=== PATIENT | male | born 1970 | race American Indian/Alaskan Native ===

== ENCOUNTER 2019-06-07 14:30 | Emergency (ER) | payer SELFPAY ==
[2019-06-07 15:04] VITALS: BP 138/95
--- NOTE | 2019-06-07 15:36 | Emergency Department Report ---
ED ENT HPI - General Chief complaint: Allergic Reaction Stated complaint: THROAT SWELLING/PAIN Time Seen by Provider: 06/07/19 15:28 Source: patient Mode of arrival: Ambulatory Limitations: No Limitations - History of Present Illness Initial comments: This is a 49-year-old male nontoxic well in appearance with no signs of distress presents to the ED with complaint of sore throat. Patient denies any drooling or hoarseness. Patient denies any other symptoms. Denies any fever, chills, headache, nausea, vomiting, chest pain or SOB. Denies any other complaints. Patient stated allergies to morphine. MD complaint: sore throat -: days(s) Location: throat Severity: mild Severity scale (0 -10): 8 Quality: aching Consistency: constant Improves with: none Worsens with: swallowing Associated Symptoms: pain with swallowing, sore throat. denies: fever, cough, gum swelling, toothache, tinnitus, hearing loss, discharge from ear, rhinorrhea - Related Data Previous Rx's Medication Instructions Recorded Last Taken Type Amoxicillin [Amoxicillin TAB] 875 mg PO BID #20 tablet 06/07/19 Unknown Rx Ibuprofen [Motrin] 600 mg PO Q8H PRN #20 tablet 06/07/19 Unknown Rx Allergies Allergy/AdvReac Type Severity Reaction Status Date / Time No Known Allergies Allergy Verified 06/07/19 14:33 ED Dental HPI - General Chief complaint: Allergic Reaction Stated complaint: THROAT SWELLING/PAIN Time Seen by Provider: 06/07/19 15:28 Source: patient Mode of arrival: Ambulatory Limitations: No Limitations - Related Data Previous Rx's Medication Instructions Recorded Last Taken Type Amoxicillin [Amoxicillin TAB] 875 mg PO BID #20 tablet 06/07/19 Unknown Rx Ibuprofen [Motrin] 600 mg PO Q8H PRN #20 tablet 06/07/19 Unknown Rx Allergies Allergy/AdvReac Type Severity Reaction Status Date / Time No Known Allergies Allergy Verified 06/07/19 14:33 ED Review of Systems ROS: Stated complaint: THROAT SWELLING/PAIN Other details as noted in HPI Constitutional: denies: chills, fever Eyes: denies: eye pain, eye discharge, vision change ENT: throat pain. denies: ear pain Respiratory: denies: cough, shortness of breath, wheezing Cardiovascular: denies: chest pain, palpitations Endocrine: no symptoms reported Gastrointestinal: denies: abdominal pain, nausea, diarrhea Genitourinary: denies: urgency, dysuria Musculoskeletal: denies: back pain, joint swelling, arthralgia Skin: denies: rash, lesions Neurological: denies: headache, weakness, paresthesias Psychiatric: denies: anxiety, depression Hematological/Lymphatic: denies: easy bleeding, easy bruising ED Past Medical Hx - Past Medical History Previous Medical History?: No - Surgical History Past Surgical History?: No - Social History Smoking Status: Current Every Day Smoker Substance Use Type: Alcohol, Marijuana - Medications Home Medications: Home Medications Medication Instructions Recorded Confirmed Last Taken Type Amoxicillin [Amoxicillin TAB] 875 mg PO BID #20 tablet 06/07/19 Unknown Rx Ibuprofen [Motrin] 600 mg PO Q8H PRN #20 tablet 06/07/19 Unknown Rx ED Physical Exam - General Limitations: No Limitations General appearance: alert, in no apparent distress - Head Head exam: Present: atraumatic, normocephalic - Expanded ENT Exam Expanded Ear exam: Present: normal external inspection Mouth exam: Present: normal external inspection. Absent: drooling, trismus, muffled voice Teeth exam: Present: normal inspection Throat exam: Positive: tonsillar erythema, other (uvula midline). Negative: tonsillomegaly, tonsillar exudate, R peritonsillar mass, L peritonsillar mass - Neck Neck exam: Present: normal inspection, full ROM. Absent: tenderness, meningismus, lymphadenopathy - Extremities Exam Extremities exam: Present: normal inspection, full ROM - Back Exam Back exam: Present: normal inspection, full ROM. Absent: tenderness, CVA tenderness (R), CVA tenderness (L), muscle spasm, paraspinal tenderness, vertebral tenderness, rash noted - Neurological Exam Neurological exam: Present: alert, oriented X3, normal gait - Psychiatric Psychiatric exam: Present: normal affect, normal mood - Skin Skin exam: Present: warm, dry, intact, normal color. Absent: rash - Other Other exam information: no angioedema. ED Course Vital Signs 06/07/19 15:01 Temperature 98.1 F Pulse Rate 67 Respiratory 17 Rate Blood Pressure 138/95 O2 Sat by Pulse 98 Oximetry - Reevaluation(s) Reevaluation #1: 06/07/19 15:34 Patient is speaking in full sentences with no signs of distress noted. ED Medical Decision Making - Medical Decision Making Patient was instructed to Follow-up with a primary care doctor in 3-5 days or if symptoms worsen and continue return to emergency room as soon as possible. At time of discharge, the patient does not seem toxic or ill in appearance. No acute signs of distress noted. Patient agrees to discharge treatment plan of care. No further questions noted by the patient. Critical care attestation.: If time is entered above; I have spent that time in minutes in the direct care of this critically ill patient, excluding procedure time. ED Disposition Clinical Impression: Pharyngitis Qualifiers: Pharyngitis/tonsillitis etiology: unspecified etiology Qualified Code(s): J02.9 - Acute pharyngitis, unspecified Disposition: - TO HOME OR SELFCARE Is pt being admited?: No Does the pt Need Aspirin: No Condition: Stable Instructions: Pharyngitis (ED) Additional Instructions: Follow-up with a primary care doctor in 3-5 days or if symptoms worsen and continue return to emergency room as soon as possible. Prescriptions: Amoxicillin [Amoxicillin TAB] 875 mg PO BID #20 tablet Ibuprofen [Motrin] 600 mg PO Q8H PRN #20 tablet PRN Reason: Pain Referrals: PRIMARY CARE, [Referring] - 3-5 Days SIRISHA CHANDRA MD [Staff Physician] - 3-5 Days [facility] [Outside] - 3-5 Days [facility] [Outside] - 3-5 Days
== END 2019-06-07 16:10 | disposition home or self-care (01) ==
LOC: ED 14:30
DX: J02.9 Acute pharyngitis, unspecified (principal); F17.200 Nicotine dependence, unspecified, uncomplicated; F12.10 Cannabis abuse, uncomplicated; Z79.899 Other long term (current) drug therapy

== ENCOUNTER 2019-06-19 15:12 | Emergency (ER) | payer OTHER ==
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
[2019-06-19 23:36] VITALS: BP 169/102
== END 2019-06-19 23:36 | disposition home or self-care (01) ==
LOC: ED 15:12
DX: S16.1XXA Strain of muscle, fascia and tendon at neck level, initial encounter (principal); S86.911A Strain of unspecified muscle(s) and tendon(s) at lower leg level, right leg, initial encounter; S46.912A Strain of unspecified muscle, fascia and tendon at shoulder and upper arm level, left arm, initial encounter; F17.200 Nicotine dependence, unspecified, uncomplicated; F10.10 Alcohol abuse, uncomplicated; F12.10 Cannabis abuse, uncomplicated; Z98.890 Other specified postprocedural states; Z79.899 Other long term (current) drug therapy; V49.49XA Driver injured in collision with other motor vehicles in traffic accident, initial encounter; Y93.89 Activity, other specified; Y92.410 Unspecified street and highway as the place of occurrence of the external cause; Y99.8 Other external cause status
CPT/HCPCS: 72040

== ENCOUNTER 2019-08-24 11:05 | Emergency (ER) | payer SELFPAY ==
[2019-08-24 11:14] VITALS: BP 156/73
--- NOTE | 2019-08-24 11:18 | Event Note ---
ED Screening Note Date of service: 08/24/19 Time: 11:14 ED Screening Note: This is a 49 y.o. M. that presents with right hip pain. Woke up with symptoms this morning. 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 Denies radiating pain, swelling, or bruising. Pain worse with with sitting and movement. This initial assessment/diagnostic orders/clinical plan/treatment(s) is/are subject to change based on patients health status, clinical progression and re- assessment by fellow clinical providers in the ED. Further treatment and workup at subsequent clinical providers discretion. Patient/guardian urged not to elope from the ED as their condition may be serious if not clinically assessed and managed. Initial orders include: ACC for further evaluation.
--- NOTE | 2019-08-24 12:35 | Emergency Department Report ---
HPI - General Chief Complaint: Pain General Time Seen by Provider: 08/24/19 11:14 - HPI HPI: This is a 49-year-old male who presents to ED complaining of right lateral keep/type pain that began this morning when he woke up after coming in from work. 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 Patient states he does to some heavy lifting and bending but had no trauma injuries or falls. Patient states pain is localized to the right lateral hip region. Patient denies any radiation elsewhere. He denies fever assess chills/nausea vomiting/extremity swelling redness ED Past Medical Hx - Past Medical History Previous Medical History?: No - Surgical History Past Surgical History?: No Additional Surgical History: NECK SURGERY IN 1992 - Social History Smoking Status: Heavy Tobacco Smoker Substance Use Type: Alcohol, Marijuana - Medications Home Medications: Home Medications Medication Instructions Recorded Confirmed Last Taken Type Amoxicillin [Amoxicillin TAB] 875 mg PO BID #20 tablet 06/07/19 Unknown Rx Ibuprofen [Motrin] 600 mg PO Q8H PRN #20 tablet 06/07/19 Unknown Rx Methocarbamol [Robaxin] 500 mg PO BID PRN #15 tablet 06/19/19 Unknown Rx Cyclobenzaprine [Flexeril] 10 mg PO QHS PRN #30 tablet 08/24/19 Unknown Rx Ibuprofen [Motrin 800 MG tab] 800 mg PO Q8HR PRN #20 tablet 08/24/19 Unknown Rx ED Review of Systems ROS: Stated complaint: RT THIGH PAIN Other details as noted in HPI Comment: All other systems reviewed and negative Physical Exam - Physical Exam Vital Signs: Vital Signs 08/24/19 08/24/19 11:11 11:15 Temperature 99.1 F 99 F Pulse Rate 85 79 Respiratory 18 16 Rate Blood Pressure 156/73 156/73 O2 Sat by Pulse 95 97 Oximetry Physical Exam: GENERAL: Alert and oriented x3, no apparent distress, Normal Gait, atraumatic. HEAD: Head is normocephalic and a-traumatic. NECK: Supple. Non edematous, No lymphadenopathy or thyromegaly. No C-spine tenderness, full range of motion LUNGS: Symetrical with respiration, No wheezing, no rales or crackles, CTAB. HEART: S1, S2 present, regular rate and rhythm without murmur, no rubs, no gallops. Non tender to palpation BACK: Full range of motion, no spinal tenderness, EXTREMITIES/MUSCULOSKELETAL: No cyanosis, clubbing, rash, lesions or edema. Full ROM bilaterally. UE/LE Pulses 2+ bilaterally. LE and UE 5+ strength bilaterally, NEUROLOGIC: The patient is cooperative with no focal neurologic deficits. Tenderness to palpation of the right lateral thigh muscle. No swelling, some dystrophy of the muscle noted. SKIN: Warm and dry, No lesions, No ulceration or induration present. ED Course Vital Signs 08/24/19 08/24/19 11:11 11:15 Temperature 99.1 F 99 F Pulse Rate 85 79 Respiratory 18 16 Rate Blood Pressure 156/73 156/73 O2 Sat by Pulse 95 97 Oximetry ED Medical Decision Making - Medical Decision Making 49-year-old female presents to ED with myalgia asked her right thigh muscle ED course: Patient received Vital signs are normal patient is in no acute distress Discussed with patient follow-up with primary care physician. Discussed with patient will need to follow-up with an orthopedic doctor. Referrals given. Discussed the patient and take medications as prescribed. Patient has no neurological deficit. Patient is alert and oriented 3 and understands all instructions given. Discussed drowsiness effect of Flexeril makes her drowsy and not to operate machinery while taking flexeril Critical care attestation.: If time is entered above; I have spent that time in minutes in the direct care of this critically ill patient, excluding procedure time. ED Disposition Clinical Impression: Thigh pain, musculoskeletal Disposition: DC-01 TO HOME OR SELFCARE Is pt being admited?: No Does the pt Need Aspirin: No Condition: Stable Instructions: Arthralgia (ED) Additional Instructions: Make sure to follow up with the primary care physician as discussed. Take all your medications as you've been prescribed. If you have any worsening symptoms or develop new symptoms please return to ED immediately. Prescriptions: Cyclobenzaprine [Flexeril] 10 mg PO QHS PRN #30 tablet PRN Reason: Muscle Spasm Ibuprofen [Motrin 800 MG tab] 800 mg PO Q8HR PRN #20 tablet PRN Reason: Pain , Severe (7-10) Referrals: DLEMI RENDON MD [Staff Physician] - 3-5 Days Forms: Work/School Release Form(ED) Time of Disposition: 12:36
== END 2019-08-24 13:02 | disposition home or self-care (01) ==
LOC: ED 11:05
DX: M79.651 Pain in right thigh (principal); M79.18 Myalgia, other site; F17.200 Nicotine dependence, unspecified, uncomplicated; F12.10 Cannabis abuse, uncomplicated
CPT/HCPCS: 99282

== ENCOUNTER 2021-06-03 12:56 | Emergency (ER) | payer SELFPAY ==
[2021-06-03] MEDS ORDERED: IBUPROFEN 800 MG TAB PO ONE (13:08)
[2021-06-03] MEDS ORDERED: dexAMETHasone 4 MG/ML VIAL IM ONE (13:08)
--- NOTE | 2021-06-03 13:09 | Emergency Department Report ---
Minor Respiratory - HPI Chief Complaint: Sore Throat Stated Complaint: SORE THROAT Time Seen by Provider: 06/03/21 13:08 Duration: 2 Days Pain Location: Throat Severity: mild Minor Respiratory: Yes Sore Throat, Yes Able to Tolerate Fluids, No Rhinorrhea, No Ear Pain, No Cough, No Sick Contacts, No Hemoptysis, No Chest Pain, No Shortness of Breath, No Fever Other History: 51 YO AA COMES TO ER WITH SORE THROAT X 1 D AFTER WALKING HOME LATE LAST NIGHT. NO COUGH. NO FEVER. NO CHILLS. NO ABSCESS/LUDWIGS. TAKING PO. NO CP. NO SOB ED Review of Systems ROS: Stated complaint: SORE THROAT Other details as noted in HPI Comment: All other systems reviewed and negative ED Past Medical Hx - Past Medical History Previous Medical History?: No - Surgical History Past Surgical History?: Yes Additional Surgical History: NECK SURGERY IN 1992 - Family History Family history: no significant - Social History Smoking Status: Current Every Day Smoker Substance Use Type: None - Medications Home Medications: Home Medications Medication Instructions Recorded Confirmed Last Taken Type Amoxicillin [Trimox CAP] 500 mg PO BID #20 capsule 06/03/21 Unknown Rx Minor Respiratory Exam - Exam General: Vital signs noted. No distress. Alert and acting appropriately. HEENT: Yes Pharyngeal Erythema, Yes Pharyngeal Exudates, Yes Moist Mucous Membranes, No Rhinorrhea, No Conjuctival Injection, No Frontal Tenderness, No Maxillary Tenderness Ear: Neither TM Bulge, Neither TM Erythema, Neither EAC Pain, Neither EAC Discharge Neck: Yes Supple, No Adenopathy Lungs: Yes Good Air Exchange, No Wheezes, No Ronchi, No Stridor, No Cough, No Labored Respirations, No Retractions, No Use of Accessory Muscles, No Other Abnormal Lung Sounds Heart: Yes Regular, No Murmur Abdomen: Yes Normal Bowel Sounds, No Tenderness, No Peritoneal Signs Skin: No Rash, No Edema Neurologic: Alert and oriented, no deficits. Musculoskeletal: Unremarkable. ED Medical Decision Making - Medical Decision Making VS NORMAL DOCUMENTED BY RN TAKING PO MEDICATED IN ER DC HOME WITH DC PLAN OF CARE INCLUDING MEDS/ FOLLOW UP - PT VERBALIZES UNDERSTANDING OF PLAN OF CARE - Differential Diagnosis URI Critical care attestation.: If time is entered above; I have spent that time in minutes in the direct care of this critically ill patient, excluding procedure time. ED Disposition Clinical Impression: Pharyngitis Qualifiers: Pharyngitis/tonsillitis etiology: unspecified etiology Qualified Code(s): J02.9 - Acute pharyngitis, unspecified Disposition: 01 HOME / SELF CARE / HOMELESS Is pt being admited?: No Does the pt Need Aspirin: No Condition: Stable Instructions: Viral Respiratory Infection, [id number] Additional Instructions: STAY WELL HYDRATED MOTRIN OR TYLENOL FOR PAIN OR FEVER FOLLOW UP WITH PCP IN 48 HOURS FOR RECHECK MEDS ORDERED TODAY Prescriptions: Amoxicillin [Trimox CAP] 500 mg PO BID #20 capsule Referrals: JOHN MORALES MD [Staff Physician] - 3-5 Days Time of Disposition: 13:41
== END 2021-06-03 14:48 | disposition home or self-care (01) ==
LOC: ED 12:56
DX: J02.9 Acute pharyngitis, unspecified (principal); F17.210 Nicotine dependence, cigarettes, uncomplicated; Z98.890 Other specified postprocedural states
CPT/HCPCS: 96372; 99282; J1100